=== PATIENT | female | born 1995 | race African-American/Black ===

== ENCOUNTER 2017-06-12 17:00 | Emergency (ER) | payer OTHER ==
[~2017-06-12] VITALS: Ht 167.6 cm; Wt 70.8 kg
[2017-06-12 17:06] VITALS: Ht 167.6 cm; Wt 70.8 kg
[2017-06-12 17:46] VITALS: TEMP 37
[2017-06-12] MEDS ORDERED: AZITHROMYCIN 250 MG TAB PO ONE (19:45)
[2017-06-12] MEDS ORDERED: CEFTRIAXONE SOD 350MG/ML 1 GM VIAL IM ONE (19:45)
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
[2017-06-12 20:18] VITALS: BP 114/69; PULSE 72; O2SAT 100
== END 2017-06-12 20:20 | disposition home or self-care (01) ==
LOC: C.EDB 17:02 → C.EDC 20:20
DX: T76.21XA Adult sexual abuse, suspected, initial encounter (principal); Z77.21 Contact with and (suspected) exposure to potentially hazardous body fluids; R45.851 Suicidal ideations; Z91.5 Personal history of self-harm